=== PATIENT | female | born 1980 | race Two or more races ===

== ENCOUNTER 2019-12-17 05:29 | Emergency (ER) | payer MEDICAID ==
[~2019-12-17] VITALS: Ht 162.6 cm; Wt 113.4 kg
[2019-12-17 06:59] LABS: Urine WBC None Seen /hpf (0 - 5)
[2019-12-17 07:09] LABS: Urine Bacteria NONE SEEN /hpf (None Seen); Urine Blood Negative /uL (Negative); Urine Mucus FEW (None Seen); Urine Specific Gravity 1.021 (1.001-1.035)
[2019-12-17 07:22] LABS: Basophils # (auto) 0.1 10 ^3/uL (0-0.2); Basophils % (auto) 0.5 % (0.0-2.0); Eosinophils # (auto) 0.6 10 ^3/uL (0-0.8); Eosinophils % (auto) 5.6 % (0.0-7.0); Hematocrit 42.1 % (36.0-46.0); Hemoglobin 14.8 g/dL (12.2-16.2); Lymphocytes # (auto) 1.7 10 ^3/uL (0.4-5.4); Lymphocytes % (auto) 16.7 % (10.0-50.0); Mean Corpuscular Hgb Conc. 35.2 g/dL (32.0-36.0); Mean Corpuscular Volume 87.9 fL (80.0-100.0); Monocytes # (auto) 0.4 10 ^3/uL (0-1.3); Monocytes % (auto) 3.7 % (0.0-12.0); Neutrophils # (auto) 7.6 10 ^3/uL (1.6-8.6); Neutrophils % (auto) 73.5 % (37.0-80.0); Nucleated Red Blood Cells % 0.1 %; Platelet Count (auto) 297 10^3/uL (140-450); Red Blood Cells 4.79 10^6/uL (4.0-5.20); Red Cell Distribution Width 12.9 % (11.8-14.3); White Blood Cell 10.3 10^3/uL (4.4-10.8)
[2019-12-17 07:51] LABS: Potassium 4.1 mmol/L (3.5-5.1)
[2019-12-17 07:58] LABS: Albumin 3.8 g/dL (3.4-5.0); BUN/Creatinine Ratio 11.7; Bilirubin, Total 0.7 mg/dL (0.2-1.0); Total Protein 7.9 g/dL (6.4-8.2)
[2019-12-17 09:22] VITALS: BP 108/50
== END 2019-12-17 09:23 | disposition home or self-care (01) ==
LOC: ER 05:29
DX: R10.84 Generalized abdominal pain (principal); R11.2 Nausea with vomiting, unspecified; R19.7 Diarrhea, unspecified; E11.9 Type 2 diabetes mellitus without complications
CPT/HCPCS: 36415; 70450; 74176; 80053; 81001; 81025; 82150; 83605; 83690; 85025

== ENCOUNTER 2020-04-29 15:01 | Emergency (ER) | payer MEDICAID ==
[~2020-04-29] VITALS: Ht 165.1 cm; Wt 117.9 kg
[2020-04-29] MEDS ORDERED: KETOROLAC TROMETH 60MG/2ML VIAL IM ONE (17:00)
[2020-04-29 17:57] VITALS: BP 147/75
== END 2020-04-29 17:50 | disposition home or self-care (01) ==
LOC: ER 15:01
DX: G43.909 Migraine, unspecified, not intractable, without status migrainosus (principal)
CPT/HCPCS: 96372; 99283; J1885

== ENCOUNTER 2024-02-29 00:25 | Inpatient (IN) | payer OTHER, MEDICAID ==
[~2024-02-29] VITALS: Ht 162.6 cm; Wt 120.0 kg
--- NOTE | 2024-02-29 00:51 | ED.PDOC ---
HPI Allergic reaction HPI Comments HPI: Poor Historian. 44-year-old female presents to emergency department for evaluation of an allergic reaction that happened approximately hour prior to arrival. Patient felt some tongue numbness and some hives. She also had associated nausea vomiting diarrhea nonbilious nonbloody. Patient took some Benadryl x2 and she says by the time she arrived here symptoms have significantly improved. Patient had associated mild headache. She said similar episodes happened in the past at least a year ago when she was taking Ozempic and she never used Ozempic again since then. She is also allergic to red meats but denies use of any red meats recently.. She does not know what triggered this event today. Denies any airway involvement to her allergic reaction. After patient started having sensation of hives and some tongue tingling, she began to have nausea and vomiting nonbilious nonbloody and she had the runs nonbloody also. Past Medcial History: Diabetes not taking any medications Past Surgical History: Denies any REVIEW OF SYSTEMS: CONSTITUTIONAL: Denies acute: fever, diaphoresis, chills, HEAD: Denies acute: headache, photophobia Eyes: Denies acute: Double vision, vision loss, eye pain, eye discharge. EARS: Denies acute: tinnitus, hearing loss, ear discharge, ear pain, THROAT: Denies acute: sore throat, swelling, difficulty swallowing , pain with swallowing, change in voice. NECK: Denies acute: neck pain, neck swelling, stiff neck. HEART: Denies acute : chest pain, palpitations, LUNGS: Denies acute: SOB, wheezing, cough, hemoptysis ABDOMEN: Denies acute: abdominal pain, Nausea, Vomiting, diarrhea, melena , hematemesis, hematochezia SKIN: Denies acute: lesions, EXTREMITIES: Denies acute: calf pain, numbness, weakness, denies pain in extremity. Denies acute: Low back pain. Neuro: Denies acute: focal neurological deficit, motor or sensory focal neurological deficit, tremors, seizure like activity, confusion, dizziness, change in mental status, loss of bowel or bladder function, cauda equina like symptoms. : Denies acute: dysuria, hematuria, flank pain, increase in urinary frequency. PSYCH: Denies acute: hallucination, suicidal ideation, homicidal ideation. FEMALE: Denies acute: abnormal vaginal bleeding, foul odor, unusual discharge. PHYSICAL EXAM: General: no acute distress, awake and alert. Head: normocephalic, atraumatic. Neck: supple, trachea is midline, no swelling. Throat: Normal phonation. No exudates, no erythema, no swelling, no stridor, no evidence of obstruction or tripoding. Eyes:, no erythema, no purulent discharge, no proptosis, no icterus. Heart: regular rate, regular rhythm, no significant murmur appreciated. Lungs: no apparent respiratory distress, Able to speak in full sentences. No wheezing, no rhonchi, no crackles. No stridors Clear to auscultation bilaterally. Abdomen: non tender to palpation, non distended, soft, no guarding, no rebound, + bowel sounds. Obese Neuro: Awake, Alert, oriented to name, self, situation, follows commands GCS=15. Speech is normal. Skin: no petechia, no purpura, no cyanosis, non-pale, not jaundice. Noted generalized mild hives on the lower the back. Lower extremities: --no - Pitting edema no deformity, no focal swelling, no calf TTP. Makes eye contact. moves all four extremities. Face: no apparent facial droop. Ambulating in the ED independently. Chief Complaint: Allergic Reaction Time Seen by MD: 00:42 Primary Care Provider: POLI Wilder Notes: Nurses Notes, Medications, Allergies Allergies: Coded Allergies: Meat Extract (Verified Allergy, Unknown, 02/29/24) Phenol (Verified Allergy, Unknown, 02/29/24) Propylene Glycol (Verified Allergy, Unknown, 02/29/24) Semaglutide (Verified Allergy, Unknown, 02/29/24) Information Source: Patient Past Medical History PAST MEDICAL HISTORY: Anxiety, DM Surgical History: Denies all surgeries COSTING ANALYST History: No Pertinent COSTING ANALYST History Family History Family History: Reviewed,noncontributory to illness Social History Smoker: Non-Smoker Alcohol: Denies ETOH Use Drugs: Denies Drug Use Lives In: Home X-Ray, Labs, Meds, VS Vital Signs Date Time Temp Pulse Resp B/P (MAP) Pulse Ox O2 Delivery O2 Flow Rate FiO2 02/29/24 03:45 98.3 63 18 139/47 (77) 98.3 02/29/24 03:09 98.8 98.8 02/29/24 03:03 Room Air* 0 21 02/29/24 00:46 97.6 82 16 139/72 (94) 100 02/29/24 00:46 16 100 Room Air* 0 21 Lab Test 02/29/24 02:45 02/29/24 00:47 Range/Units Urine Color Yellow Yellow Urine Clarity Turbid H Clear Urine pH 5.0 5.0-9.0 Urine Specific [place] 1.048 H 1.001-1.035 Urine Protein Trace H Negative Urine Ketones Negative Negative Urine Blood Negative Negative /uL Urine Nitrite Negative Negative Urine Bilirubin Negative Negative Urine Urobilinogen 2 H Negative mg/dL Urine Leukocyte Esterase Negative Negative /uL Urine RBC 3 0 - 4 /hpf Urine Microscopic WBC 4 0-5 /HPF Urine Squamous Epithelial Cells Few <5 /hpf Urine Bacteria Few H None Seen /hpf Urine Mucus Few None Seen Urine Yeast (Budding) Moderate None Seen /hpf Urine Glucose 4+ H Normal mg/dL Urine Test Negative Negative White Blood Count 10.5 4.4-10.8 10^3/uL Red Blood Count 5.62 H 4.0-5.20 10^6/uL Hemoglobin 16.7 H 12.2-16.2 g/dL Hematocrit 48.5 H 36.0-46.0 % Mean Corpuscular Volume 86.3 80.0-100.0 fL Mean Corpuscular Hemoglobin 29.7 28.0-32.0 pg Mean Corpuscular Hemoglobin Concent 34.4 32.0-36.0 g/dL Red Cell Distribution Width 13.7 11.8-14.3 % Platelet Count 336 140-450 10^3/uL Mean Platelet Volume 9.9 6.9-10.8 fL Neutrophils (%) (Auto) 60.7 37.0-80.0 % Lymphocytes (%) (Auto) 31.6 10.0-50.0 % Monocytes (%) (Auto) 3.8 0.0-12.0 % Eosinophils (%) (Auto) 2.7 0.0-7.0 % Basophils (%) (Auto) 1.2 0.0-2.0 % Neutrophils # (Auto) 6.4 1.6-8.6 10 ^3/uL Lymphocytes # (Auto) 3.3 0.4-5.4 10 ^3/uL Monocytes # (Auto) 0.4 0-1.3 10 ^3/uL Eosinophils # (Auto) 0.3 0-0.8 10 ^3/uL Basophils # (Auto) 0.1 0-0.2 10 ^3/uL Nucleated Red Blood Cells 0.1 % Sodium Level 137 136-145 mmol/L Potassium Level 3.7 3.5-5.1 mmol/L Chloride Level 102 98-107 mmol/L Carbon Dioxide Level 28 20-31 mmol/L Anion Gap 7 5-15 Blood Urea Nitrogen 10 9-23 mg/dL Creatinine 1.02 0.550-1.02 mg/dL Glomerular Filtration Rate Calc 70 >90 mL/min BUN/Creatinine Ratio 9.8 L 10.0-20.0 Serum Glucose 448 *H 74-106 mg/dL Lactic Acid Level 2.0 0.4-2.0 mmol/L Calcium Level 10.1 8.7-10.4 mg/dL Total Bilirubin 0.5 0.2-1.0 mg/dL Aspartate Amino Transferase (AST) 21 13-40 U/L Alanine Aminotransferase (ALT) 31 7-40 U/L Alkaline Phosphatase 122 H 46-116 U/L Troponin I High Sensitivity < 3 L </=34 ng/L Total Protein 7.4 5.7-8.2 g/dL Albumin 4.4 3.2-4.8 g/dL Current Medications Medications (Trade) Dose Ordered Sig/Massimo Route Start Time Stop Time Status Last Admin Sodium Chloride 1,000 ml @ 1,000 mls/hr Q1H ONCE IV 02/29/24 00:45 02/29/24 01:44 DC 02/29/24 01:02 Ondansetron HCl (Zofran) 8 mg ONCE ONCE IV 02/29/24 00:45 02/29/24 00:46 DC 02/29/24 01:02 Famotidine (Pepcid Injection) 20 mg ONCE ONCE IV 02/29/24 00:45 02/29/24 00:46 DC 02/29/24 01:01 Methylprednisolone Sodium Succinate (Solu Medrol) 250 mg ONCE ONCE IV 02/29/24 00:45 02/29/24 00:46 DC 02/29/24 01:01 Pantoprazole Sodium (Protonix) 40 mg ONCE ONCE IV 02/29/24 00:45 02/29/24 00:46 DC 02/29/24 01:02 Insulin Human Regular (InsuLIN R) 5 units ONCE ONCE IV 02/29/24 02:30 02/29/24 02:31 DC 02/29/24 02:59 Sodium Chloride 1,000 ml @ 1,000 mls/hr Q1H ONCE IV 02/29/24 03:22 02/29/24 04:21 02/29/24 03:26 Time of 1ST Reevaluation: 03:26 (Patient developed hypotensive episode blood pressure was in the 50s systolically and she felt dizzy. Patient was given at least 2 L of normal saline bolus. Given her allergic reaction event that happened earlier prior to arrival and with the presence of hypotensive episode, I will admit the patient for observation and further evaluation and treatment.) Reevaluation 1ST: Improved Time of 2ND Reevaluation: 04:03 (The case was discussed with the [facility] admitting team (HPI, physical exam, labs and diagnostic tests that were available at the time of disposition, ED course, treatment plan) on the phone. They authorized us to keep the patient our facility because the patient had episode of hypotension which could be in anaphylactic shock. Authorization number is [id number] Dr. Flood. ) Patient Education/Counseling: Diagnosis, Treatment Family Education/Counseling: Other Departure 1 Departure Time of Disposition: 03:03 Impression: Primary Impression: Allergic reaction Additional Impressions: Nausea vomiting and diarrhea Hyperglycemia Hypotension Disposition: 09 ADMITTED INPATIENT Admit to: [facility] Condition: Guarded Discharged With: Self Critical Care Note Critical Care Time?: Yes (45 min-critical care time only) NATALIIA BIRD DO Feb 29, 2024 00:51
[2024-02-29] MEDS: FAMOTIDINE (10MG/ML) 2ML VL IV ONE ×2 (01:01→16:11)
[2024-02-29] MEDS: methylPREDNISolone SOD SUCC 125 MG/2 ML VL IV ONE (01:01)
[2024-02-29] MEDS: ONDANSETRON HCL 4 MG/2 ML VIAL IV ONE (01:02)
[2024-02-29] MEDS: PANTOPRAZOLE 40 MG/10 ML VIAL INJ IV ONE (01:02)
[2024-02-29] MEDS: SODIUM CHLORIDE 0.9% 1,000 ML IV ONE ×3 (01:02→04:15)
[2024-02-29 01:07] LABS: Basophils # (auto) 0.1 10 ^3/uL (0-0.2); Basophils % (auto) 1.2 % (0.0-2.0); Eosinophils # (auto) 0.3 10 ^3/uL (0-0.8); Eosinophils % (auto) 2.7 % (0.0-7.0); Hematocrit 48.5 % (36.0-46.0); Hemoglobin 16.7 g/dL (12.2-16.2); Lymphocytes # (auto) 3.3 10 ^3/uL (0.4-5.4); Lymphocytes % (auto) 31.6 % (10.0-50.0); Mean Corpuscular Hemoglobin 29.7 pg (28.0-32.0); Mean Corpuscular Hgb Conc. 34.4 g/dL (32.0-36.0); Mean Corpuscular Volume 86.3 fL (80.0-100.0); Monocytes # (auto) 0.4 10 ^3/uL (0-1.3); Monocytes % (auto) 3.8 % (0.0-12.0); Neutrophils # (auto) 6.4 10 ^3/uL (1.6-8.6); Neutrophils % (auto) 60.7 % (37.0-80.0); Nucleated Red Blood Cells % 0.1 %; Platelet Count (auto) 336 10^3/uL (140-450); Red Blood Cells 5.62 10^6/uL (4.0-5.20); Red Cell Distribution Width 13.7 % (11.8-14.3); White Blood Cell 10.5 10^3/uL (4.4-10.8)
[2024-02-29 01:26] LABS: Alanine Aminotransferase 31 U/L (7-40); Albumin 4.4 g/dL (3.2-4.8); Anion Gap 7 (5-15); Aspartate Aminotransferase 21 U/L (13-40); BUN/Creatinine Ratio 9.8 (10.0-20.0); Blood Urea Nitrogen 10 mg/dL (9-23); Calcium 10.1 mg/dL (8.7-10.4); Carbon Dioxide 28 mmol/L (20-31); Chloride 102 mmol/L (98-107); Potassium 3.7 mmol/L (3.5-5.1); Sodium 137 mmol/L (136-145)
[2024-02-29 01:27] LABS: Bilirubin, Total 0.5 mg/dL (0.2-1.0); Total Protein 7.4 g/dL (5.7-8.2)
[2024-02-29 01:31] LABS: Alkaline Phosphatase 122 U/L (46-116); Glucose 448 mg/dL (74-106)
[2024-02-29] MEDS: InsuLIN REG 1unit/0.01ml Soln (100units/ml) IV ONE (02:59)
--- NOTE | 2024-02-29 03:13 | DVH ---
Examination: CXRP Clinical Indication: allergic rxn Comparison: None. Technique: Frontal radiograph of the chest was obtained. Findings: Lungs are clear and well expanded, with no pulmonary infiltrate or pleural effusion. Ther e is no pneumothorax. The cardiomediastinal silhouette is within normal limits. No acute osseous abnormality is seen. Impression: No acute cardiopulmonary disease is seen. Electronically Signed 02/29/2024 03:12 Kan [place]
[2024-02-29 03:40] LABS: Urine Bacteria FEW /hpf (None Seen); Urine Blood Negative /uL (Negative); Urine Budding Yeast MODERATE /hpf (None Seen); Urine Clarity Turbid (Clear); Urine Color Yellow (Yellow); Urine Mucus FEW (None Seen); Urine Protein, UAD TRACE (Negative); Urine Specific Gravity 1.048 (1.001-1.035); Urine Squamous Epithelial Cell FEW /hpf (<5); Urine Urobilinogen 2 mg/dL (Negative); Urine WBC 4 /HPF (0-5)
--- NOTE | 2024-02-29 04:18 | DVH ---
Exam: CT CT AB PEL WO CON-NO ORAL OR IV History: n/v/d Comparison Study: CT of the abdomen pelvis dated 12/17/2019. Technique: Multidetector spiral CT of the abdomen and pelvis was performed from lung bases to pubic s ymphysis. Imaging was performed without intravenous contrast. Coronal and sagittal multiplanar refor mats were obtained from the axial data set by the technologist. Radiation Dose : 1. Abdomen/Pelvis: CTDIvol 26.8 mGy, DLP 1612.4 mGy*cm. Findings: Evaluation of vasculature and solid organs is limited due to lack of intravenous contrast use. Lung Bases: Lung bases are clear. Visualized portions of the heart and pericardium are unremarkable. Liver: The liver is normal in size. No focal lesions. Gallbladder and Biliary Tree: The gallbladder is unremarkable. No intrahepatic or extrahepatic bilia ry ductal dilatation. Spleen: Unremarkable Pancreas: The pancreas is grossly unremarkable. Adrenal Glands: Unremarkable Kidneys: Kidneys are unremarkable without calculi or hydronephrosis. GI tract: The stomach is grossly normal in appearance. Mild mesenteric fat stranding in the left upp er quadrant where there are fluid-filled small bowel loops without abnormal dilatation. The colon is unremarkable. The appendix is visualized and is normal. Peritoneum/mesentery/retroperitoneum. No evidence of free intraperitoneal air. No ascites. No evidenc e of suspicious lymphadenopathy. Abdominal Wall: Unremarkable. Vasculature: The visualized abdominal aorta is normal in size and caliber. Evaluation of abdominal a nd pelvic vessels is limited due to lack of intravenous contrast. Urinary Bladder: Grossly unremarkable for degree of distention. Pelvic Organs: Uterus and adnexal structures are unremarkable. Musculoskeletal: No aggressive focal bony lesions, acute fractures or dislocation. IMPRESSION: 1. Fluid-filled small bowel loops with mild mesenteric fat stranding which may reflect enteritis give n the provided history of nausea/vomiting / diarrhea. No small bowel obstruction.
[2024-02-29] MEDS: FLUCONAZOLE 100 MG TAB PO ONE (04:19)
--- NOTE | 2024-02-29 06:54 | DVHHP2 ---
History of Present Illness Reason for Visit: Allergic reaction History of Present Illness 44-year-old female past medical history diabetes surgical history denies chief complaint patient came in last night state she had a bad allergic reaction unknown substance. She did not remember eating chicken last but otherwise nothing new she states the last time she has a severe allergic reaction was when she took a Ozempic last year and she had the same symptoms and she states she felt some numbness to the right side of her face she also broke out in a rash she was shortness of the breath she felt a easy feeling on her tongue she also vomited. She states she has epinephrine but she never took the medication. But she did state she felt better after she got a dose of Benadryl. Patient was concerned because last time her symptoms was really bad. When reviewing the chart it appears patient is a [facility] patient she got authorization for admission. When evaluating patient's labs and imaging from ED records looks like Diflucan was given normal saline 2 L regular insulin was given comes anae nt's blood glucose was greater than 400 she got Solu-Medrol she was given Pepcid and Zofran CBC was unremarkable chest x-ray was unremarkable CT scan of the abdomen pelvis shows enteritis. With these findings we will admit IV hydration steroids. Past Medical History Diabetes Past Surgical History Denies surgical history Past Social History The patient lives at home, denies smoking, alcohol or illicit drugs abuse. Review of Systems Constitutional: No: Fever, Chills, Sweats, Weakness, Malaise, Other Eyes: No: Pain, Vision change, Conjunctivae inflammation, Eyelid inflammation, Other, Redness ENT: Mouth swelling (Tongue numbness hives right facial numbness some vomiting) Respiratory: No: Cough, Dry, Shortness of breath, SOB with excertion, Wheezing, Hemoptysis, Pleuritic Pain, Sputum, Wheezing, Other Cardiovascular: No: Chest Pain, Palpitations, Orthopnea, Paroxysmal Noc. Dyspnea, Edema, Lt Headedness, Other Gastrointestinal: No: Nausea, Vomiting, Abdominal Pain, Diarrhea, Constipation, Melena, Hematochezia, Other Genitourinary: No Dysuria, No Frequency, No Incontinence, No Hematuria, No Retention, No Other Musculoskeletal: No: other, neck pain, shoulder pain, arm pain, back pain, hand pain, leg pain, foot pain Skin: No: Rash, Lesions, Jaundice, Bruising, Other Neurological: No: Weakness, Numbness, Incoordination, Change in speech, Confusion, Seizures, Other Allergies: Coded Allergies: Meat Extract (Verified Allergy, Unknown, 02/29/24) Phenol (Verified Allergy, Unknown, 02/29/24) Propylene Glycol (Verified Allergy, Unknown, 02/29/24) Semaglutide (Verified Allergy, Unknown, 02/29/24) Exam Vital Signs Vital Signs Date Time Temp Pulse Resp B/P (MAP) Pulse Ox O2 Delivery O2 Flow Rate FiO2 02/29/24 04:06 66 16 124/69 (87) 100 02/29/24 03:45 98.3 98.3 02/29/24 03:03 Room Air* 0 21 General Appearance: Alert, Oriented X3, Cooperative, No acute distress HEENT: Atraumatic, PERRLA, EOMI, Mucous membr. moist/pink Respiratory: Clear to auscultation, Normal air movement, Other (Airway pain no drooling able to handle secretions no Gurdeep's angina no stridor heard) Cardiovascular: Regular rate, Normal S1, Normal S2, No murmurs Abdominal: Normal bowel sounds, Soft, No tenderness, No hepatospenomegaly, No masses Extremities: No clubbing, No cyanosis, No edema, Normal pulses, No tenderness/swelling Skin: No rashes, No breakdown, No significant lesion Neuro: Normal gait, Normal speech, Strength at 5/5 X4 ext, Normal tone, Sensation intact, Cranial nerves 3-12 NL Psych/Mental Status: Mental status NL, Mood NL Labs/Xrays Chest x-ray unremarkable CT scan abdomen pelvis shows enteritis I reviewed labs, imaging CT scan abdomen pelvis, EKG and all diagnostic studies on this patient from ED records and the medical chart Labs Test 02/29/24 02:45 02/29/24 00:47 Range/Units Urine Color Yellow Yellow Urine Clarity Turbid H Clear Urine pH 5.0 5.0-9.0 Urine Specific [place] 1.048 H 1.001-1.035 Urine Protein Trace H Negative Urine Ketones Negative Negative Urine Blood Negative Negative /uL Urine Nitrite Negative Negative Urine Bilirubin Negative Negative Urine Urobilinogen 2 H Negative mg/dL Urine Leukocyte Esterase Negative Negative /uL Urine RBC 3 0 - 4 /hpf Urine Microscopic WBC 4 0-5 /HPF Urine Squamous Epithelial Cells Few <5 /hpf Urine Bacteria Few H None Seen /hpf Urine Mucus Few None Seen Urine Yeast (Budding) Moderate None Seen /hpf Urine Glucose 4+ H Normal mg/dL Urine Test Negative Negative White Blood Count 10.5 4.4-10.8 10^3/uL Red Blood Count 5.62 H 4.0-5.20 10^6/uL Hemoglobin 16.7 H 12.2-16.2 g/dL Hematocrit 48.5 H 36.0-46.0 % Mean Corpuscular Volume 86.3 80.0-100.0 fL Mean Corpuscular Hemoglobin 29.7 28.0-32.0 pg Mean Corpuscular Hemoglobin Concent 34.4 32.0-36.0 g/dL Red Cell Distribution Width 13.7 11.8-14.3 % Platelet Count 336 140-450 10^3/uL Mean Platelet Volume 9.9 6.9-10.8 fL Neutrophils (%) (Auto) 60.7 37.0-80.0 % Lymphocytes (%) (Auto) 31.6 10.0-50.0 % Monocytes (%) (Auto) 3.8 0.0-12.0 % Eosinophils (%) (Auto) 2.7 0.0-7.0 % Basophils (%) (Auto) 1.2 0.0-2.0 % Neutrophils # (Auto) 6.4 1.6-8.6 10 ^3/uL Lymphocytes # (Auto) 3.3 0.4-5.4 10 ^3/uL Monocytes # (Auto) 0.4 0-1.3 10 ^3/uL Eosinophils # (Auto) 0.3 0-0.8 10 ^3/uL Basophils # (Auto) 0.1 0-0.2 10 ^3/uL Nucleated Red Blood Cells 0.1 % Sodium Level 137 136-145 mmol/L Potassium Level 3.7 3.5-5.1 mmol/L Chloride Level 102 98-107 mmol/L Carbon Dioxide Level 28 20-31 mmol/L Anion Gap 7 5-15 Blood Urea Nitrogen 10 9-23 mg/dL Creatinine 1.02 0.550-1.02 mg/dL Glomerular Filtration Rate Calc 70 >90 mL/min BUN/Creatinine Ratio 9.8 L 10.0-20.0 Serum Glucose 448 *H 74-106 mg/dL Lactic Acid Level 2.0 0.4-2.0 mmol/L Calcium Level 10.1 8.7-10.4 mg/dL Total Bilirubin 0.5 0.2-1.0 mg/dL Aspartate Amino Transferase (AST) 21 13-40 U/L Alanine Aminotransferase (ALT) 31 7-40 U/L Alkaline Phosphatase 122 H 46-116 U/L Troponin I High Sensitivity < 3 L </=34 ng/L Total Protein 7.4 5.7-8.2 g/dL Albumin 4.4 3.2-4.8 g/dL Assessment/Plan Assessment/Plan acute allergic reaction unknown etiology Solu-Medrol, Pepcid provided in the ER Order Benadryl Order Solu-Medrol for now Can consider epi subcu if worsening symptoms Order IV hydration for now monitor for resp distress uncontrolled type 2 dm without DKA Bicarb and CO2 in normal range Patient was provided insulin IV For now Accu-Chek every 4 hours IV fluid hydration for now Order hemoglobin A1c follow up results Acute enteritis not likely bacterial likely viral Found on CT scan IV hydration for now no need for antibotics at this time fen/ppx diet ivf protonix scd for now since ambulatory plan admit to medicine Plan discussed with: Patient Date of Service: Feb 29, 2024 Billing Provider: SARY BOTELLO DNP Common Visit Codes: [id number] INP/OBS CARE (HIGH) SARY BOTELLO DNP Feb 29, 2024 06:53
[2024-02-29] MEDS ORDERED: diphenhdrAMINE HCL 50 MG/1 ML VL IV PRN (08:00)
[2024-02-29] MEDS ORDERED: MORPHINE SULFATE INJ 2 MG/ml SYRG IV PRN (08:00)
[2024-02-29] MEDS ORDERED: DEXTROSE (50%) 50ML SYRG IV PRN ×2 (08:00→13:45)
[2024-02-29] MEDS ORDERED: NITROGLYCERIN 0.4 MG SL TAB SL PRN (08:00)
[2024-02-29] MEDS ORDERED: ONDANSETRON HCL 4 MG/2 ML VIAL IV PRN (08:00)
[2024-02-29 09:36] VITALS: BP 110/52; PULSE 60; RESP 18; TEMP 97.8; O2SAT 98
[2024-02-29] MEDS ORDERED: METF-370 PO (10:11)
[2024-02-29] MEDS ORDERED: ATOR20TA50 PO (10:11)
[2024-02-29] MEDS ORDERED: ALBUAER3 IN (10:11)
[2024-02-29] MEDS: SODIUM CHLORIDE 0.9% 1,000 ML IV SCH ×2 (10:42→13:45)
[2024-02-29] MEDS: ACCU-CHEK COMFORT CURVE STRIP VI SCH ×2 (11:29→16:54)
[2024-02-29] MEDS: InsuLIN REG 1unit/0.01ml Soln (100units/ml) SC SCH ×3 (11:36→20:32)
--- NOTE | 2024-02-29 13:38 | DVHPN2 ---
Progress Note Date Seen: Feb 29, 2024 Medical Necessity Reason Pt with a Central, PICC or Fol: No Subjective Patient reports: No new complaints Review of Systems: HEENT:Normal, CVS:Normal, RESPIRATORY:Normal, GI:Normal, :Normal, MSK:Normal, NEURO:Normal Objective vital signs Vital Sign Date Time Temp Pulse Resp B/P (MAP) Pulse Ox O2 Delivery O2 Flow Rate FiO2 02/29/24 09:36 97.8 60 18 110/52 (71) 98 97.8 02/29/24 03:03 Room Air* 0 21 Total Intake and Output 02/28/24 02/28/24 02/29/24 14:59 22:59 06:59 Intake Total 3000 ml Balance 3000 ml medications Current Medications Medications Dose Ordered Sig/Massimo Route Start Time Stop Time Status Last Admin Dose Admin Sodium Chloride 1,000 ml @ 120 mls/hr Q8H20M IV 02/29/24 08:00 02/29/24 10:42 120 MLS/HR Ondansetron HCl 4 mg Q4HP PRN IV 02/29/24 08:00 Docusate Sodium 100 mg BIDPRN PRN PO 02/29/24 08:00 Morphine Sulfate 2 mg Q4HPRN PRN IV 02/29/24 08:00 Nitroglycerin 0.4 mg Q5MINP PRN SL 02/29/24 08:00 Diagnostic Test (Pha) 1 strip ACHS 02/29/24 11:30 02/29/24 11:29 1 STRIP Insulin Human Regular ACHS SC 02/29/24 11:30 02/29/24 11:36 10 UNITS Dextrose 50 ml UD PRN IV 02/29/24 08:00 Diphenhydramine HCl 25 mg Q6HP PRN IV 02/29/24 08:00 Methylprednisolone Sodium Succinate 40 mg Q8HR IV 02/29/24 14:00 Examination: GENERAL:Normal, HEENT:Normal, NECK:Normal, LUNGS:Normal, CVS:Normal, ABDOMEN:Normal, MSK:Normal, SKIN:Normal, NEURO:Normal, :Normal laboratory and microbiology Laboratory Tests 02/29/24 00:47 Test 02/29/24 00:47 Range/Units Serum Glucose 448 *H 74-106 mg/dL Problem List/Assessment/Plan Problem List/Assessment/Plan #1 acute anaphylactic reaction: iv steroids, iv pepcid #2 uncontrolled dm: ssi #3 morbid obesity #4 asthma #5 hyperlipidemia advance care planning- full code- time spent 19 mins Plan discussed with: Patient Date of Service: Feb 29, 2024 Billing Provider: YAS JOSEPH MD Common Visit Codes: [id number] INP/OBS CARE(HIGH) Secondary Visit Codes: [id number] CARE PLAN 30 MINUTES YAS JOSEPH MD Feb 29, 2024 13:38
[2024-02-29] MEDS ORDERED: methylPREDNISolone SOD SUCC 40 MG/ML VL IV SCH (14:00)
[2024-02-29 15:48] VITALS: BP 122/58; PULSE 65; RESP 18; TEMP 98.5; O2SAT 98
[2024-02-29 20:00] VITALS: BP 128/43; PULSE 65; RESP 17; TEMP 98.3; O2SAT 99
[2024-02-29] MEDS: methylPREDNISolone SOD SUCC 40 MG/ML VL IV SCH (20:36)
[2024-03-01] VITALS (8 sets, daily range): BP systolic 130–147; BP diastolic 50–79; PULSE 52–86; RESP 14–20; TEMP 97.2–98.3; O2SAT 94–100
[2024-03-01] MEDS: FAMOTIDINE (10MG/ML) 2ML VL IV SCH (00:34)
[2024-03-01 05:24] LABS: Basophils # (auto) 0.1 10 ^3/uL (0-0.2); Basophils % (auto) 0.4 % (0.0-2.0); Eosinophils # (auto) 0 10 ^3/uL (0-0.8); Hemoglobin 13.5 g/dL (12.2-16.2); Lymphocytes % (auto) 6.4 % (10.0-50.0); Mean Corpuscular Hemoglobin 29.8 pg (28.0-32.0); Mean Corpuscular Hgb Conc. 33.9 g/dL (32.0-36.0); Mean Corpuscular Volume 87.9 fL (80.0-100.0); Monocytes # (auto) 0.3 10 ^3/uL (0-1.3); Monocytes % (auto) 2.2 % (0.0-12.0); Neutrophils # (auto) 13.8 10 ^3/uL (1.6-8.6); Platelet Count (auto) 218 10^3/uL (140-450); Red Blood Cells 4.55 10^6/uL (4.0-5.20); Red Cell Distribution Width 13.6 % (11.8-14.3); White Blood Cell 15.2 10^3/uL (4.4-10.8)
[2024-03-01 05:37] LABS: Anion Gap 8 (5-15); Potassium 4.1 mmol/L (3.5-5.1)
[2024-03-01 05:38] LABS: Calcium 9.9 mg/dL (8.7-10.4)
[2024-03-01 05:43] LABS: BUN/Creatinine Ratio 15.7 (10.0-20.0); Blood Urea Nitrogen 13 mg/dL (9-23); Carbon Dioxide 20 mmol/L (20-31); Chloride 108 mmol/L (98-107); Sodium 136 mmol/L (136-145)
[2024-03-01 05:45] LABS: Glucose 421 mg/dL (74-106)
--- NOTE | 2024-03-01 12:16 | DVHPN2 ---
Subjective The patient is seen and examined at bedside. No swelling edema today. No shortness a breath. Reviewed: Care Plan, H&P, Labs, Medications, Previous Orders, Radiology Changes from previous H/P or p: No Changes Eyes: No Pain, No Vision change, No Conjunctivae inflammation, No Eyelid inflammation, No Other, No Redness ENT: Mouth swelling (Tongue numbness hives right facial numbness some vomiting) Cardiovascular: No Chest Pain, No Palpitations, No Orthopnea, No Paroxysmal Noc. Dyspnea, No Edema, No Lt Headedness, No Other Respiratory: No Cough, No Dry, No Shortness of breath, No SOB with excertion, No Wheezing, No Hemoptysis, No Pleuritic Pain, No Sputum, No Other Gastrointestinal: No Nausea, No Vomiting, No Abdominal Pain, No Diarrhea, No Constipation, No Melena, No Hematochezia, No Other Genitourinary: No Dysuria, No Frequency, No Incontinence, No Hematuria, No Retention, No Other Musculoskeletal: No other, No neck pain, No shoulder pain, No arm pain, No back pain, No hand pain, No leg pain, No foot pain Skin: No Rash, No Lesions, No Jaundice, No Bruising, No Other Objective Vitals Vital Signs Date Time Temp Pulse Resp B/P (MAP) Pulse Ox O2 Delivery O2 Flow Rate FiO2 03/01/24 10:00 97.5 86 16 130/66 (87) 98 97.5 03/01/24 08:04 Room Air* 0 21 Intake/Output Intake and Output 03/01/24 07:00 Intake Total 2000 ml Balance 2000 ml Intake Oral 1000 ml Other 1000 ml # Voids 4 General Appearance: Alert, Oriented X3, Cooperative, No acute distress HEENT: Atraumatic, PERRLA, EOMI, Mucous membr. moist/pink Neck: Supple Lungs: Clear to auscultation, Normal air movement Cardiovascular: Regular rate, Normal S1, Normal S2, No murmurs, Gallops, Rubs Neuro: Cranial nerves 3-12 NL Psych/Mental Status: Mental status NL Medications Current Medications Medications Dose Ordered Sig/Massimo Route Start Time Stop Time Status Last Admin Dose Admin Ondansetron HCl 4 mg Q4HP PRN IV 02/29/24 08:00 Docusate Sodium 100 mg BIDPRN PRN PO 02/29/24 08:00 Morphine Sulfate 2 mg Q4HPRN PRN IV 02/29/24 08:00 Nitroglycerin 0.4 mg Q5MINP PRN SL 02/29/24 08:00 Diphenhydramine HCl 25 mg Q6HP PRN IV 02/29/24 08:00 Sodium Chloride 1,000 ml @ 100 mls/hr Q10H IV 02/29/24 13:45 03/01/24 11:35 100 MLS/HR Methylprednisolone Sodium Succinate 20 mg BID IV 02/29/24 22:00 03/01/24 10:52 20 MG Diagnostic Test (Pha) 1 strip ACHS 02/29/24 17:00 03/01/24 11:57 1 STRIP Insulin Human Regular HS SC 02/29/24 22:00 02/29/24 20:32 10 UNITS Insulin Human Regular AC SC 02/29/24 17:00 03/01/24 12:06 9 UNITS Dextrose 50 ml UD PRN IV 02/29/24 13:45 Famotidine 20 mg Q12HR IV 02/29/24 22:00 03/01/24 10:52 20 MG Laboratory Results Laboratory Tests 03/01/24 04:43 Chemistry Test 03/01/24 04:43 Calcium Level 9.9 mg/dL (8.7-10.4) Urinalysis Test 02/29/24 02:45 Urine Color Yellow (Yellow) Urine Clarity Turbid (Clear) H Urine pH 5.0 (5.0-9.0) Urine Specific [place] 1.048 (1.001-1.035) Urine Protein Trace (Negative) H Urine Ketones Negative (Negative) Urine Blood Negative /uL (Negative) Urine Nitrite Negative (Negative) Urine Bilirubin Negative (Negative) Urine Urobilinogen 2 mg/dL (Negative) H Urine Leukocyte Esterase Negative /uL (Negative) Urine RBC 3 /hpf (0 - 4) Urine Microscopic WBC 4 /HPF (0-5) Urine Squamous Epithelial Cells Few /hpf (<5) Urine Bacteria Few /hpf (None Seen) H Urine Mucus Few (None Seen) Urine Yeast (Budding) Moderate /hpf (None Seen) Urine Glucose 4+ mg/dL (Normal) H Urine Test Negative (Negative) Labs and/or images reviewed: Labs reviewed by me Assessment/Plan Assessment/Plan #1 acute anaphylactic reaction: iv steroids, iv pepcid #2 uncontrolled dm: Continuing sliding scale insulin moderate scale. I am going to add Lantus 20 units subQ q.h.s.. #3 morbid obesity #4 asthma #5 hyperlipidemia Continuing current management. Discharge planning when blood pressure better controlled.. Plan discussed with: Patient My Orders Orders - LISANDRO MCCALLUM MD Procedure Category Date Status Time Insulin Lantus PHA 03/01/24 Verified (Glargine) (Lantus) 22:00 Date of Service: Mar 01, 2024 Billing Provider: LISANDRO MCCALLUM MD Common Visit Codes: [id number] INP/OBS CARE(HIGH) LISANDRO MCCALLUM MD Mar 01, 2024 12:16
[2024-03-01] MEDS: INSULIN LANTUS (GLARGINE) 1 /0.01ml (100units/ml) SC SCH (21:25)
[2024-03-02] VITALS (7 sets, daily range): BP systolic 117–151; BP diastolic 43–77; PULSE 47–85; RESP 14–19; TEMP 98–98.2; O2SAT 95–99
[2024-03-02] MEDS: ACETAMINOPHEN 325 MG TAB PO PRN (15:27)
[2024-03-02] MEDS: INSULIN LANTUS (GLARGINE) 1 /0.01ml (100units/ml) SC SCH (22:28)
--- NOTE | 2024-03-02 22:49 | DVHPN2 ---
Subjective The patient is seen and examined at bedside. No swelling edema today. No shortness a breath. Reviewed: Care Plan, H&P, Labs, Medications, Previous Orders, Radiology Changes from previous H/P or p: No Changes Eyes: No Pain, No Vision change, No Conjunctivae inflammation, No Eyelid inflammation, No Other, No Redness ENT: Mouth swelling (Tongue numbness hives right facial numbness some vomiting) Cardiovascular: No Chest Pain, No Palpitations, No Orthopnea, No Paroxysmal Noc. Dyspnea, No Edema, No Lt Headedness, No Other Respiratory: No Cough, No Dry, No Shortness of breath, No SOB with excertion, No Wheezing, No Hemoptysis, No Pleuritic Pain, No Sputum, No Other Gastrointestinal: No Nausea, No Vomiting, No Abdominal Pain, No Diarrhea, No Constipation, No Melena, No Hematochezia, No Other Genitourinary: No Dysuria, No Frequency, No Incontinence, No Hematuria, No Retention, No Other Musculoskeletal: No other, No neck pain, No shoulder pain, No arm pain, No back pain, No hand pain, No leg pain, No foot pain Skin: No Rash, No Lesions, No Jaundice, No Bruising, No Other Objective Vitals Vital Signs Date Time Temp Pulse Resp B/P (MAP) Pulse Ox O2 Delivery O2 Flow Rate FiO2 03/02/24 21:00 98.1 72 19 142/72 (95) 95 98.1 03/02/24 07:30 Room Air* 0 21 Intake/Output Intake and Output 03/02/24 07:00 Intake Total 1800 ml Balance 1800 ml Intake Oral 1800 ml # Voids 8 General Appearance: Alert, Oriented X3, Cooperative, No acute distress HEENT: Atraumatic, PERRLA, EOMI, Mucous membr. moist/pink Neck: Supple Lungs: Clear to auscultation, Normal air movement Cardiovascular: Regular rate, Normal S1, Normal S2, No murmurs, Gallops, Rubs Neuro: Cranial nerves 3-12 NL Psych/Mental Status: Mental status NL Medications Current Medications Medications Dose Ordered Sig/Massimo Route Start Time Stop Time Status Last Admin Dose Admin Ondansetron HCl 4 mg Q4HP PRN IV 02/29/24 08:00 Docusate Sodium 100 mg BIDPRN PRN PO 02/29/24 08:00 Morphine Sulfate 2 mg Q4HPRN PRN IV 02/29/24 08:00 Diphenhydramine HCl 25 mg Q6HP PRN IV 02/29/24 08:00 Sodium Chloride 1,000 ml @ 100 mls/hr Q10H IV 02/29/24 13:45 03/02/24 15:29 100 MLS/HR Diagnostic Test (Pha) 1 strip ACHS 02/29/24 17:00 03/02/24 22:28 1 STRIP Insulin Human Regular HS SC 02/29/24 22:00 03/02/24 22:28 8 UNITS Insulin Human Regular AC SC 02/29/24 17:00 03/02/24 17:15 15 UNITS Dextrose 50 ml UD PRN IV 02/29/24 13:45 Famotidine 20 mg Q12HR IV 02/29/24 22:00 03/02/24 22:23 20 MG Insulin Glargine 25 units HS SC 03/02/24 22:00 03/02/24 22:28 25 UNITS Acetaminophen 650 mg Q6HP PRN PO 03/02/24 15:30 03/02/24 15:27 650 MG Laboratory Results Laboratory Tests 03/01/24 04:43 Urinalysis Test 02/29/24 02:45 Urine Color Yellow (Yellow) Urine Clarity Turbid (Clear) H Urine pH 5.0 (5.0-9.0) Urine Specific [place] 1.048 (1.001-1.035) Urine Protein Trace (Negative) H Urine Ketones Negative (Negative) Urine Blood Negative /uL (Negative) Urine Nitrite Negative (Negative) Urine Bilirubin Negative (Negative) Urine Urobilinogen 2 mg/dL (Negative) H Urine Leukocyte Esterase Negative /uL (Negative) Urine RBC 3 /hpf (0 - 4) Urine Microscopic WBC 4 /HPF (0-5) Urine Squamous Epithelial Cells Few /hpf (<5) Urine Bacteria Few /hpf (None Seen) H Urine Mucus Few (None Seen) Urine Yeast (Budding) Moderate /hpf (None Seen) Urine Glucose 4+ mg/dL (Normal) H Urine Test Negative (Negative) Labs and/or images reviewed: Labs reviewed by me Assessment/Plan Assessment/Plan #1 acute anaphylactic reaction: iv steroids, iv pepcid #2 uncontrolled dm: Continuing sliding scale insulin moderate scale. I am going to add Lantus 20 units subQ q.h.s.. #3 morbid obesity #4 asthma #5 hyperlipidemia Continuing current management. Discharge planning when blood pressure better controlled.. Continuing sliding scale insulin. Discontinuing Solu-Medrol. Plan discussed with: Patient My Orders Orders - LISANDRO MCCALLUM MD Procedure Category Date Status Time Insulin Lantus PHA 03/02/24 In Process (Glargine) (Lantus) 22:00 Acetaminophen Tablet PHA 03/02/24 In Process (Tylenol Tablet) 15:30 Date of Service: Mar 02, 2024 Billing Provider: LISANDRO MCCALLUM MD Common Visit Codes: [id number] INP/OBS CARE(HIGH) LISANDRO MCCALLUM MD Mar 02, 2024 22:49
[2024-03-03 01:00] VITALS: BP 114/92; PULSE 56; RESP 19; TEMP 97.8; O2SAT 95
[2024-03-03 05:00] VITALS: BP 125/70; PULSE 86; RESP 18; TEMP 98.8; O2SAT 96
[2024-03-03] MEDS: DOCUSATE SOD 100 MG CAP PO PRN (06:18)
[2024-03-03 09:00] VITALS: BP 153/82; PULSE 52; RESP 18; TEMP 98.5; O2SAT 96
[2024-03-03] MEDS ORDERED: EPIN0.1I11 IJ (12:49)
--- NOTE | 2024-03-03 12:53 | DVHDS2 ---
Discharge Summary Date of Admission Feb 29, 2024 at 07:58 Date of Discharge: Mar 03, 2024 Admitting Diagnosis #1 acute anaphylactic reaction #2 uncontrolled dm. #3 morbid obesity #4 asthma #5 hyperlipidemia Labs/Diagnostic Data: Laboratory Results Test 03/03/24 11:05 03/01/24 04:43 02/29/24 02:45 02/29/24 00:47 POC Glucose 263 mg/dl (70-106) White Blood Count 15.2 10^3/uL (4.4-10.8) Red Blood Count 4.55 10^6/uL (4.0-5.20) Hemoglobin 13.5 g/dL (12.2-16.2) Hematocrit 40.0 % (36.0-46.0) Mean Corpuscular Volume 87.9 fL (80.0-100.0) Mean Corpuscular Hemoglobin 29.8 pg (28.0-32.0) Mean Corpuscular Hemoglobin Concent 33.9 g/dL (32.0-36.0) Red Cell Distribution Width 13.6 % (11.8-14.3) Platelet Count 218 10^3/uL (140-450) Mean Platelet Volume 10.4 fL (6.9-10.8) Neutrophils (%) (Auto) 91.0 % (37.0-80.0) Lymphocytes (%) (Auto) 6.4 % (10.0-50.0) Monocytes (%) (Auto) 2.2 % (0.0-12.0) Eosinophils (%) (Auto) 0.0 % (0.0-7.0) Basophils (%) (Auto) 0.4 % (0.0-2.0) Neutrophils # (Auto) 13.8 10 ^3/uL (1.6-8.6) Lymphocytes # (Auto) 1.0 10 ^3/uL (0.4-5.4) Monocytes # (Auto) 0.3 10 ^3/uL (0-1.3) Eosinophils # (Auto) 0 10 ^3/uL (0-0.8) Basophils # (Auto) 0.1 10 ^3/uL (0-0.2) Nucleated Red Blood Cells 0.0 % Sodium Level 136 mmol/L (136-145) Potassium Level 4.1 mmol/L (3.5-5.1) Chloride Level 108 mmol/L (98-107) Carbon Dioxide Level 20 mmol/L (20-31) Anion Gap 8 (5-15) Blood Urea Nitrogen 13 mg/dL (9-23) Creatinine 0.83 mg/dL (0.550-1.02) Glomerular Filtration Rate Calc 89 mL/min (>90) BUN/Creatinine Ratio 15.7 (10.0-20.0) Serum Glucose 421 mg/dL (74-106) Calcium Level 9.9 mg/dL (8.7-10.4) Urine Color Yellow (Yellow) Urine Clarity Turbid (Clear) Urine pH 5.0 (5.0-9.0) Urine Specific [place] 1.048 (1.001-1.035) Urine Protein Trace (Negative) Urine Ketones Negative (Negative) Urine Blood Negative /uL (Negative) Urine Nitrite Negative (Negative) Urine Bilirubin Negative (Negative) Urine Urobilinogen 2 mg/dL (Negative) Urine Leukocyte Esterase Negative /uL (Negative) Urine RBC 3 /hpf (0 - 4) Urine Microscopic WBC 4 /HPF (0-5) Urine Squamous Epithelial Cells Few /hpf (<5) Urine Bacteria Few /hpf (None Seen) Urine Mucus Few (None Seen) Urine Yeast (Budding) Moderate /hpf (None Seen) Urine Glucose 4+ mg/dL (Normal) Urine Test Negative (Negative) Hemoglobin A1c 12.1 % A1C (<5.7) Lactic Acid Level 2.0 mmol/L (0.4-2.0) Total Bilirubin 0.5 mg/dL (0.2-1.0) Aspartate Amino Transferase (AST) 21 U/L (13-40) Alanine Aminotransferase (ALT) 31 U/L (7-40) Alkaline Phosphatase 122 U/L (46-116) Troponin I High Sensitivity < 3 ng/L (</=34) Total Protein 7.4 g/dL (5.7-8.2) Albumin 4.4 g/dL (3.2-4.8) Other Laboratory Tests 03/01/24 04:43 Brief Hx & Hospital Course: This is a 44 years old female with past medical history of diabetes came to emergency department because of bad allergic reaction with unknown substance. The patient said he she had an episode like this in the past and she went to an equipment maintenance superintendent. They tested her for food allergy and other allergies. The patient apparently did not identify any source of allergy with food. She said she was found to allergy with weed and Polen but no food allergy. This time she was eating chicken and not anything out of ordinary. She said she had another severe allergic reaction when she took the Ozempic one year prior to this admission. She was admitted. She was given Solu-Medrol. She was found to have elevation of blood glucose to 400. She was put on sliding scale insulin and Lantus was added to her regimen. Patient also received IV fluid for hydration. The patient subsequently doing well. Blood sugar controlled well. Solu-Medrol was discontinuing. I am going to discharge her home. Advised her to follow up with primary care physician 1-2 weeks. Follow up with equipment maintenance superintendent per schedule. I will give her an EpiPen for emergency anaphylactic shock. Educated the patient how to give herself the epi injection and advised her to tissue family member in case if she become shortness for breath, and anaphylactic shock and could not give herself the injections Physical exam: HEENT: Normocephalic atraumatic pupils equal react to light and accommodation. Extraocular muscles intact, conjunctiva pink, oropharynx moist, no thrush, no exudate. Lymphatic: No lymphadenopathy Cardiovascular exam: S1, S2 was heard. No murmurs, rubs, gallops Lung: Clear on auscultation bilaterally, no wheeze, rale, rhonchi. GI: Abdominal soft, nondistended, nontenderness, positive bowel sounds. Extremity: No crepitus, cyanosis, edema. Pedal pulses present bilateral. Full range of motion. Skin: Normal turgor, no rash. Psych: Alert, oriented x3. Neurology: No focal deficits, cranial nerve II to XII grossly intact. This medical document was created using an electronic medical record system with [employer] direct computerized dictation system. Although this document has been carefully reviewed, there may still be some phonetic and typographical errors. These areas are purely typographical due to imperfections of the software programs, and do not reflect any compromise in the patient's medical care. Condition at Discharge: Stable Final Diagnosis/Problems List #1 acute anaphylactic reaction #2 uncontrolled dm. #3 morbid obesity #4 asthma #5 hyperlipidemia Discharge Disposition: Home Discharge Instruct/Medications Diet: Regular Activity: No Restrictions, As Tolerated Follow Up/Referral: pcp 1-2 weeks General Assistant per schedule Medications: Epi pen resume home meds Discharge Statement: "Patient was advised to return to the ER or call 911 if any headaches, dizziness, shortness of breath, chest pain, abdominal pain, bleeding, fevers, or worsening of medical condition. Patient was counseled about treatment plan, medications, possible side effects, patientverbalized understanding. All questions were answered to the best of my ability. This discharge took greater then 30 minutes in planning, reviewing documentation, counseling the patient, and discussing with other team members." ASSESSMENT ASSESSMENT Assessment anaphalaxis reaction Date of Service: Mar 03, 2024 Billing Provider: LISANDRO MCCALLUM MD Common Visit Codes: [id number] DISCH DAY >30min LISANDRO MCCALLUM MD Mar 03, 2024 12:53
[2024-03-03 13:00] VITALS: BP 139/70; PULSE 65; RESP 18; TEMP 98.6; O2SAT 97
[2024-03-03 14:38] VITALS: TEMP 37
== END 2024-03-03 16:50 | disposition home or self-care (01) | DRG 372 ==
LOC: ER 00:25 → OVERFLOW 07:58 → TELE 20:26 → TELE-EAST 03-01 15:05 → EAST 03-02 04:13
PROVIDERS: ADMIT Internal Medicine; ATTEND Internal Medicine
DX: A04.9 Bacterial intestinal infection, unspecified (principal); T78.2XXA Anaphylactic shock, unspecified, initial encounter; Z68.42 Body mass index [BMI] 45.0-49.9, adult; E78.5 Hyperlipidemia, unspecified; E66.01 Morbid (severe) obesity due to excess calories; J45.909 Unspecified asthma, uncomplicated; E11.65 Type 2 diabetes mellitus with hyperglycemia; F41.9 Anxiety disorder, unspecified; Z79.4 Long term (current) use of insulin
CPT/HCPCS: 36415; 71045; 74176; 80048; 80053; 81001; 81025; 82962; 83036; 83605; 84484; 85025; 99291; G0378; J1815; J2405; J2470; J3490